=== PATIENT | male | born 1950 | race African-American/Black ===

== ENCOUNTER 2022-05-12 10:10 | Emergency (ER) | payer MEDICARE, MEDICAID ==
[~2022-05-12] VITALS: Ht 188 cm; Wt 141.0 kg
[2022-05-12 10:24] VITALS: BP 139/71
[2022-05-12] MEDS ORDERED: EPINEPHRINE 0.1MG/ML (1:10,000) 10ML SYR ONE (12:28)
== END 2022-05-12 10:51 ==
LOC: ER 10:10
DX: R06.02 Shortness of breath (principal)
CPT/HCPCS: 31500; 82962; 99291; J3490